=== PATIENT | female | born 1955 | race Asian ===

== ENCOUNTER 2019-02-08 10:20 | Emergency (ER) | payer OTHER, BC ==
[~2019-02-08] VITALS: Ht 152.4 cm; Wt 69.4 kg
[2019-02-08 10:31] VITALS: BP 150/87
--- NOTE | 2019-02-08 10:34 | NUR ---
PT AMBULATED TO ER BED 06
--- NOTE | 2019-02-08 10:42 | NUR ---
PT BIB DAUGHTER FOR RT LEG PAIN X1 MONTH. PT REPORTS 8/10 PAIN THAT SPREADS ACROSS ENTIRE RT LEG. PT STATES PAIN AND SWELLING ARE WORSE AT NIGHT. PT DENEIS ANY TRAUMA. SWELLING PRESENT ON RT KNEE, NO BRUISING OR DEFORMITY PRESENT, +CMS, GAIT STEADY. VSS. ER MD TO SEE PT. MEDHX:HEADACES RX:IBUPROFEN, ASPIRN, AMYTRIPTALYNE
--- NOTE | 2019-02-08 10:50 | NUR ---
PT TO ER BED 8.
[2019-02-08] MEDS ORDERED: KETOROLAC 60 MG/2 ML VIAL IM ONE (11:05)
[2019-02-08 11:50] VITALS: BP 150/87
--- NOTE | 2019-02-08 11:50 | NUR ---
Patient discharged with v/s stable. Written and verbal after care instructions given and explained. Patient alert, oriented and verbalized understanding of instructions. Ambulatory with steady gait. All questions addressed prior to discharge. ID band removed. Patient advised to follow up with PMD. Rx of NORCO AND MOTRIN given. Patient educated on indication of medication including possible reaction and side effects. Opportunity to ask questions provided and answered.
== END 2019-02-08 11:50 | disposition home or self-care (01) ==
LOC: MED 10:20
DX: M79.661 Pain in right lower leg (principal); Z90.710 Acquired absence of both cervix and uterus
CPT/HCPCS: 96372; 99283; J1885